=== PATIENT | male | born 1980 | race Caucasian/White ===

== ENCOUNTER 2017-06-11 11:12 | Emergency (ER) | payer OTHER ==
[2017-06-11 11:27] VITALS: BP 132/83; PULSE 60; RESP 18; TEMP 98.4; O2SAT 99
[2017-06-11] MEDS ORDERED: TDAP ADULT 0.5 ML INJ (BOOSTRIX) IM ONE (11:57)
--- NOTE | 2017-06-11 11:59 | EDPHY ---
H & P Stated Complaint: table saw inj to 2nd/3rd digits r hand Source: Patient Exam Limitations: No limitations - Personal History Current Tetanus/Diphtheria Vaccine: No Tetanus Vaccine Date: 10 yrs,?2006 - Medical/Surgical History Hx Asthma: No Hx Chronic Respiratory Disease: No Hx Diabetes: No Hx Cardiac Disease: No Hx Renal Disease: No Hx Cirrhosis: No Hx Alcoholism: No Hx HIV/AIDS: No Hx Splenectomy or Spleen Trauma: No Other PMH: appy - Social History Smoking Status: Never smoked Time Seen by Provider: 06/11/17 11:58 HPI/ROS: HPI: This is a 36-year-old male presents with Chief Complaint: Right 2nd and 3rd finger laceration Location: Right 2nd finger Quality: laceration Duration: 1 hour prior to arrival Signs and Symptoms: + bleeding, no radiation, no numbness, no weakness, no tingling, + decreased range of motion, no swelling, + pain Timing: Acute Severity: Moderate to severe Context: Patient is left hand dominant, works as a contractor, 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 He felt like he may have nicked his bone and has decreased sensation in his 2nd finger. Reports the 3rd finger laceration is minimal. He does have decreased range of motion in the 2nd finger as well. Last meal was between 7:30-8:00 AM. Does not take any blood thinners. Modifying Factors: Direct pressure Comment: ROS: see HPI Constitutional: No fever, no chills, no weight loss Eyes: No blurred vision Respiratory: No shortness of breath, no cough Cardiovascular: No chest pain Gastrointestinal: No nausea, no vomiting no diarrhea Genitourinary: No dysuria Extremities: No myalgias Neurologic: No weakness, no numbness Skin: No rashes Hematologic: No bruising, no bleeding MEDICAL/SURGICAL/SOCIAL HISTORY: Medical history: Generally healthy. Does not take any regular medications. Surgical history: Denies Social history: Works as a contractor. CONSTITUTIONAL: Well-developed well-nourished adult white male, awake and alert , no obvious distress HEENT: Atraumatic and normocephalic, PERRL, EOMI. Tympanic membranes clear. Oropharynx clear, no exudate and moist pink mucosa. Airway patent. No lymphadenopathy. No meningismus. Cardiovascular: Normal S1/S2, regular rate, regular rhythm, without murmur rub or gallop. PULMONARY/CHEST: Symmetrical and nontender. Clear to auscultation bilaterally. Good air movement. No accessory muscle usage. ABDOMEN: Soft, nondistended, nontender, no rebound, no guarding, no peritoneal signs, no masses or organomegaly. No CVAT. EXTREMITIES: 2/2 radial pulses, strength 5/5, 2nd digit; deep 4 cm complex irregular laceration with extensor tendon injury and bone exposure. There are 2 small vessels that continue to bleed despite silver nitrate/surgifoam. no clubbing, no cyanosis or edema. NEUROLOGICAL: no focal neuro deficits. GCS 15. SKIN: Warm and dry, no erythema. no rash. Good capillary refill. (Madeline Lea) Constitutional: Initial Vital Signs Temperature (C) 36.9 C 06/11/17 11:24 Heart Rate 60 06/11/17 11:24 Respiratory Rate 18 06/11/17 11:24 Blood Pressure 132/83 H 06/11/17 11:24 O2 Sat (%) 99 06/11/17 11:24 O2 Delivery Mode Room Air Allergies/Adverse Reactions: No Known Allergies Allergy (Verified 06/11/17 11:24) Home Medications: Medication Instructions Recorded Cephalexin [Keflex (*)] 500 mg PO QID #28 cap 06/11/17 oxyCODONE/APAP 5/325 [Percocet 1 - 2 tab PO Q4H PRN #12 tab 06/11/17 5/325 (*)] Medical Decision Making - Diagnostics Imaging Results: Imaging Impressions Hand X-Ray 06/11/17 11:58 Impression: Soft tissue injury with no acute osseous abnormality. Procedures: Procedure: Laceration repair. Verbal consent was obtained from the patient. The 4 cm complex deep irregular laceration on the rigth 2nd phalanx between PIP and MCP joints was anesthetized in the usual fashion. The wound was irrigated, draped and explored to its base with a gloved finger. There were no deep structures involved. No tendon injury was identified. The wound was repaired with 5 0 Prolene. Good hemostasis was achieved patient tolerated procedure well. The procedure was performed by Dr. Kaiser Procedure: Laceration repair. Verbal consent was obtained from the patient. The 1 cm laceration on the undersurface of 3rd digit between MCP and PIP joint was anesthetized in the usual fashion. The wound was irrigated, draped and explored to its base with a gloved finger. There were no deep structures involved. No tendon injury was identified. The wound was repaired with 5 0 Prolene. Good hemostasis was achieved and patient tolerated procedure well. The procedure was performed by myself. Procedure: Splint placement. A finger splint was applied by the Emergency Room hydroelectric systems technician. After application of the splint I returned and re-examined the patient. The splint was adequately immobilizing the joint and distal to the splint the patient's circulation and sensation was intact. (Madeline Lea) ED Course/Re-evaluation: X-ray, laceration repair, wound care, IV medications Given 1 g IV Ancef complex laceration with tendon/nerve injury X-ray my read no fracture, foreign body, dislocation Surgicel, Xeroform, Kerlix, finger splint applied Spoke with Dr. Rich Jerez regarding extensor tendon and nerve injury. He says to have the patient call office and he will be seen tomorrow after or Saturday morning. (Madeline Lea) Differential Diagnosis: Differential diagnosis includes but is not limited to phalanx fracture, tendon injury, laceration repair. (Madeline Lea) Other Provider: Independent physician evaluation: I evaluated and participated in the management of the patient. I also evaluated the patient independently. My co-signature indicates that I have reviewed this chart and I agree with the findings and plan of care as documented. My personal H&P findings include: The patient presents to the ED with lacerations to the dorsal aspect of his right 2nd and 3rd fingers after a table saw all accident earlier today. The patient was noted to be neurologically intact but does have a 4 cm oblique v-shaped laceration to the dorsum of his right 2nd finger with involvement of the extensor tendon. The patient was having bleeding from a digital artery. I became involved in the patient's care at the request the physician maintenance assistant. I evaluated the laceration and performed the initial primary closure for hemostasis on the right 2nd finger. The remainder of the patient's laceration was repaired by the physician maintenance assistant under my supervision. The patient will be placed in a finger splint. He is referred to our on-call hand surgeon Dr. Jerez. The patient will be discharged home with oral antibiotics. He is given customary aftercare instructions and return precautions. (Justice Kaiser) - Data Points Medications Given: Discontinued Medications Cefazolin Sodium (Ancef) 1 gm IVP EDNOW ONE PRN Reason: Protocol Stop: 06/11/17 12:36 Last Admin: 06/11/17 13:29 Dose: Not Given Diphtheria/Tetanus/Acell Pertussis (Boostrix) 0.5 ml IM .ONCE ONE Stop: 06/11/17 11:58 Last Admin: 06/11/17 13:29 Dose: 0.5 ml Cefazolin Sodium/Dextrose (Ancef 1 Gm (Premix)) 50 mls @ 200 mls/hr IV EDNOW ONE Stop: 06/11/17 13:44 Last Admin: 06/11/17 13:28 Dose: 50 mls Departure - Departure Disposition: Home, Routine, Self-Care Clinical Impression: Laceration of finger with tendon involvement Qualifiers: Encounter type: initial encounter Qualified Code(s): S61.219A - Laceration without foreign body of unspecified finger without damage to nail, initial encounter Laceration of finger, right, complicated Qualifiers: Encounter type: initial encounter Qualified Code(s): S61.411A - Laceration without foreign body of right hand, initial encounter Condition: Good Instructions: Finger Laceration (ED), Tendon Laceration (ED) Additional Instructions: Keep the dressing and splint dry and in place until seen by Orthopedics. Take Tylenol 650 mg every 4 hours and/or Ibuprofen 600 mg every 8 hours with food as needed for pain. Apply ice for 30 minutes at a time; 2-3 times per day for the next 1-2 days. Call Orthopedics, Dr. jerez's office this afternoon for follow-up appointment in the next 1-2 days. They will evaluate and recommend with you if conservative management versus surgery is indicated. The x-rays obtained in the emergency department today demonstrate no evidence of an obvious fracture. Sometimes fractures are not obvious on the initial set of x-rays performed in the ED. For this reason, you should have repeat x-rays performed in 7-10 days if you are having any pain exclude the possibility of an occult fracture. Referrals: Justice Jerez MD [Medical Doctor] - As per Instructions Prescriptions: Cephalexin [Keflex (*)] 500 mg PO QID #28 cap oxyCODONE/APAP 5/325 [Percocet 5/325 (*)] 1 - 2 tab PO Q4H PRN #12 tab PRN Reason: Pain, Severe
[2017-06-11] MEDS ORDERED: SILVER NITRATE APPLICATOR 1 APPL TP ONE ×2 (12:31→12:36)
[2017-06-11] MEDS ORDERED: ceFAZolin 1 GM VIAL IVP ONE (12:35)
== END 2017-06-11 13:57 | disposition home or self-care (01) ==
PROC: 0HQFXZZ Repair Right Hand Skin, External Approach (ICD-10-PCS; principal; 2017-06-11)
DX: S66.320A Laceration of extensor muscle, fascia and tendon of right index finger at wrist and hand level, initial encounter (principal); S61.212A Laceration without foreign body of right middle finger without damage to nail, initial encounter; Z23 Encounter for immunization; W27.0XXA Contact with workbench tool, initial encounter; Y99.0 Civilian activity done for income or pay
CPT/HCPCS: 96365; J0690; L3925